=== PATIENT | male | born 1960 | race Caucasian/White ===

== ENCOUNTER → 2023-04-11 | Day surgery (SDC) | payer BC ==
[~2023-04-11] MED LIST: Dexamethasone 4 MG/ML SDV ONE; Flumazenil 0.1 MG/ML 10 ML MDV ONE; HYDROmorphone 1 MG/ML Syringe ONE; Ketamine 200 MG/20 ML MDV ONE; Ketorolac 30 MG/ML SDV ONE; Lidocaine 2% 20 ML MDV ONE; Metoclopramide 10 MG/2 ML SDV ONE; Midazolam 1 MG/ML 2 ML SDV ONE; Ondansetron 4 MG/2 ML SDV ONE; Phenylephrine 1% 10 MG/ML SDV ONE; Propofol 200 MG/20 ML SDV ONE; fentaNYL 50 MCG/ML SDV ONE
[2023-04-11] MEDS: Lactated Ringers 1,000 ML IV SCH (09:49)
[2023-04-11] MEDS: ceFAZolin 2 GM Vial IVPUSH ONE (10:26)
[2023-04-11] MEDS: Lidocaine 1% with EPINEPHrine 1:100,000 20 ML MDV SUBCUT ONE (11:20)
== END ==
LOC: CC.SDS 09:30
PROVIDERS: ATTEND Surgery
DX: K42.9 Umbilical hernia without obstruction or gangrene (principal); Z98.890 Other specified postprocedural states
CPT/HCPCS: 00752; J0690; J1100; J1170; J1885; J2250; J2371; J2405; J2704; J2765; J3010; J3490; J7120